=== PATIENT | female | born 1975 | race Two or more races ===

== ENCOUNTER 2020-01-08 22:28 | Emergency (ER) | payer SELFPAY ==
[~2020-01-08] VITALS: Ht 157.5 cm; Wt 63.6 kg
[2020-01-08] MEDS ORDERED: [UNRECOGNIZED DRUG - REMARK] PO (22:47)
[2020-01-09 01:10] VITALS: BP 133/70
== END 2020-01-09 01:20 | disposition home or self-care (01) ==
LOC: EMS 22:28
DX: F41.9 Anxiety disorder, unspecified (principal)

== ENCOUNTER 2021-08-22 23:30 | Emergency (ER) | payer MEDICAID ==
[~2021-08-22] VITALS: Ht 160 cm; Wt 61.4 kg
[~2021-08-22 23:30] MED LIST: [UNRECOGNIZED DRUG - REMARK] PO
[2021-08-23 00:28] LABS: BASOPHILS % (AUTO) 0.6 % (0.0-2.0); EOSINOPHILS % (AUTO) 8.3 % (1.0-6.0); HEMATOCRIT 38.8 % (36-46); LYMPHOCYTES # (AUTO) 1.8 K/uL (1.0-4.8); LYMPHOCYTES % (AUTO) 27.8 % (22.0-44.0); MEAN CORPUSCULAR HEMOGLOBIN 30.7 pg (26.0-34.0); MEAN CORPUSCULAR HGB CONC 33.5 G/dL (31.0-37.0); MEAN CORPUSCULAR VOLUME 92 fL (80-100); MONOCYTES # (AUTO) 0.6 K/uL (0.1-1.0); NEUTROPHILS # (AUTO) 3.6 K/uL (1.8-7.7); NEUTROPHILS % (AUTO) 54.3 % (40.0-70.0); PLATELET COUNT (AUTO) 241 K/uL (150-450); RED BLOOD CELL COUNT(AUTO) 4.23 MIL/uL (4.00-5.20); RED CELL DISTRIBUTION WIDTH 13.5 % (11.5-14.5)
[2021-08-23 00:41] LABS: ALANINE AMINOTRANSFERASE 10 U/L (12-78); ALBUMIN 3.8 g/dL (3.4-5.0); ALKALINE PHOSPHATASE 52 U/L (46-116); ASPARTATE AMINOTRANSFERASE 14 U/L (15-37); BILIRUBIN,TOTAL 0.2 mg/dL (0.1-1.0); CALCIUM, TOTAL 8.9 mg/dL (8.8-10.5); CARBON DIOXIDE 32 mmol/L (22-29); CHLORIDE 104 mmol/L (98-107); CREATINE KINASE, TOTAL ONLY 74 U/L (26-192); CREATININE 0.66 mg/dL (0.60-1.30); GLOMERULAR FILTR. RATE CALC > 60 mL/min (>60); GLUCOSE,RANDOM 124 mg/dL (70-110); HCG,QUANTITATIVE < 1 mIU/mL (0-6); TOTAL PROTEIN, SERUM 7.3 g/dL (6.4-8.2); UREA NITROGEN, BLOOD 10 mg/dL (7-18)
[2021-08-23 00:47] LABS: ANION GAP 3 mmol/L (8-16); POTASSIUM 4.6 mmol/L (3.5-5.1); SODIUM SERUM 139 mmol/L (136-145)
[2021-08-23 00:48] LABS: B-TYPE NATRIURETIC PEPTIDE 20 pg/mL (0-100)
[2021-08-23] MEDS ORDERED: FAMOTIDINE 20 MG TABLET PO ONE (02:15)
[2021-08-23] MEDS ORDERED: MAG HYDROX/AL HYDROX/SIMETH 30 ML SUSP UDCUP PO ONE (02:15)
[2021-08-23 02:28] VITALS: BP 126/77
== END 2021-08-23 03:15 | disposition home or self-care (01) ==
LOC: EMS 08-23 00:13
DX: R07.89 Other chest pain (principal)
CPT/HCPCS: 71045; 80053; 82550; 83880; 84484; 84702; 85025; 93005; 99285; 36415-L1; 36415-TC